=== PATIENT | female | born 1945 | race Caucasian/White ===

== ENCOUNTER 2017-05-13 08:00 | Outpatient (CLI) | payer MEDICARE, BC | END 2017-05-13 08:01 | disposition home or self-care (01) | LOC: BICMAMMO 08:00 | PROVIDERS: ATTEND Specialist | DX: Z13.820 Encounter for screening for osteoporosis (principal); M85.88 Other specified disorders of bone density and structure, other site; M85.859 Other specified disorders of bone density and structure, unspecified thigh | CPT/HCPCS: 77063; 77067; 77080; G0202 ==

== ENCOUNTER 2018-05-16 11:31 | Outpatient (CLI) | payer MEDICARE, BC | END 2018-05-16 11:32 | disposition home or self-care (01) | LOC: BICMAMMO 11:31 | PROVIDERS: ATTEND Specialist | DX: Z12.31 Encounter for screening mammogram for malignant neoplasm of breast (principal) | CPT/HCPCS: 77063; 77067 ==

== ENCOUNTER 2019-05-17 13:35 | Outpatient (CLI) | payer MEDICARE, BC ==
--- NOTE | 2019-05-17 14:52 | MMO ---
Bilateral MAMMO Bilat Screen [facility]. CLINICAL HISTORY: Patient is 74 years old and is seen for screening. The patient has no family history of breast cancer. The patient has no personal history of cancer. VIEWS: The views performed were: bilateral craniocaudal with tomosynthesis and bilateral mediolateral oblique with tomosynthesis. FILMS COMPARED: The present examination has been compared to prior imaging studies performed at [facility] on 05/13/2017 and 05/16/2018, and at [facility] on 12/04/2013 and 05/15/2015. This study has been interpreted with the assistance of computer-aided detection. MAMMOGRAM FINDINGS: There are scattered fibroglandular densities. There are stable benign appearing calcifications seen in both breasts. There are no suspicious masses, suspicious calcifications, or new areas of architectural distortion. IMPRESSION: THERE IS NO MAMMOGRAPHIC EVIDENCE OF MALIGNANCY. A ROUTINE FOLLOW-UP MAMMOGRAM IN 1 YEAR IS RECOMMENDED. THE RESULTS OF THIS EXAM WERE SENT TO THE PATIENT. ACR BI-RADS Category 2 - Benign finding MAMMOGRAPHY NOTE: 1. A negative mammogram report should not delay a biopsy if a dominant of clinically suspicious mass is present. 2. Approximately 10% to 15% of breast cancers are not detected by mammography. 3. Adenosis and dense breasts may obscure an underlying neoplasm. Reported by: SHELIA JOHNSON MD Electonically Signed: [id number]
== END 2019-05-17 13:36 | disposition home or self-care (01) ==
LOC: BICMAMMO 13:35
PROVIDERS: ATTEND Specialist
DX: Z12.31 Encounter for screening mammogram for malignant neoplasm of breast (principal)
CPT/HCPCS: 77063; 77067

== ENCOUNTER 2019-05-26 12:37 | Outpatient (CLI) | payer MEDICARE, BC ==
--- NOTE | 2019-05-26 13:34 | MRI ---
THORACIC SPINE MRI WITHOUT CONTRAST: HISTORY: Back pain that radiates to the left hip and down the left leg. FINDINGS: Appropriate T1 marrow signal intensity of the thoracic vertebrae. Vertebral body height is maintained . No fracture. There does appear to be a hemangioma at the T8 level. No significant STIR hyperintensity to suggest vertebral body edema or ligamentous injury. Visualized mediastinum, lung parenchyma and solid organs are unremarkable. Conus medullaris terminates beyond the T12 level. The thoracic cord has a normal size and signal intensity. No cord malacia or cord expansion. T3-T4: Central disc protrusion that abuts the thecal sac. No significant central canal stenosis. T4-T5: Central disc protrusion that abuts the thecal sac. No significant central canal stenosis. T5-T6: Small left and right paracentral disc bulges. No significant central canal stenosis. T6-T7: Minimal left paracentral disc bulge. No significant central canal stenosis. T7-T8: Minimal disc bulge without significant central canal stenosis. T8-T9: Central, right paracentral and left paracentral disc protrusion. Mass effect and deformity the left hemicord. No cord signal abnormality. Mild to moderate central canal stenosis. T9-T10: Minimal left right paracentral disc bulges. No significant central canal stenosis. T10-T11: No significant central canal stenosis. T11-T12: Demonstrates mild central canal stenosis predominantly due to posterior element hypertrophy. IMPRESSION: Mild to moderate central canal stenosis at T8-T9 due to disc protrusion. Transcribed Date/Time: 05/26/2019 1:55 PM
--- NOTE | 2019-05-26 14:26 | MRI ---
MRI LUMBAR SPINE WITHOUT CONTRAST: INDICATION: Lumbar radiculopathy with back pain radiating into the left hip and down the left leg. COMPARISON: MRI lumbar spine dated 10/26/2013. FINDINGS: Grade I anterolisthesis of L5 on S1 is stable. The conus is seen to terminate at L2. No acute fracture is evident. There is increased edema seen between the L4-5 interspinous space, slightly more pronounced than on t he prior examination, with some subcortical sclerosis involving the inferior aspect of L4 and superio r aspect of L5 spinous processes, suspicious for changes of Baastrup's disease. At L5-S1, there is advanced facet joint degenerative change and a broad-based pseudobulge with facet hypertrophy inducing mild central canal narrowing and mild lateral recess narrowing, left greater scar n right. This is stable to the prior exam. The loss of disk space height in addition to the anterol isthesis and a broad-based pseudobulge induce stable moderate to severe left and mild right neural fo raminal narrowing. At L4-5, there is a broad-based bulge with facet hypertrophy inducing moderate central canal narrowin g. This has progressed from the prior examination due to the broad-based bulge and facet hypertrophy . The loss of disk space height in addition to degenerative change at this level induces mild bilate ral neural foraminal narrowing which has progressed from the prior exam. At L3-4, there is a broad-based bulge with facet hypertrophy inducing mild central canal narrowing an d mild bilateral neural foraminal narrowing. This has mildly progressed from the prior exam. At L2-3, there is a broad-based bulge, but no appreciable central canal or neural foraminal narrowing . At L1-L2, there is no appreciable central canal or neural foraminal narrowing. At T12-L1, there is no appreciable central canal or neural foraminal narrowing. Incidental note is made of mild bilateral hydronephrosis. IMPRESSION: 1. Worsening central canal narrowing and neural foraminal narrowing at L3-4 and L4-5. 2. Stable moderate to severe left and mild right neural foraminal narrowing at L5-S1. 3. 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 4. Nonspecific mild bilateral hydronephrosis. Further evaluation with a CT of the abdomen and pelvi s without contrast is recommended for additional characterization. POS: [facility]
== END 2019-05-26 12:38 | disposition home or self-care (01) ==
LOC: TBSIIMAG 12:37
PROVIDERS: ATTEND Neurological Surgery
DX: M54.16 Radiculopathy, lumbar region (principal); M48.061 Spinal stenosis, lumbar region without neurogenic claudication; M48.07 Spinal stenosis, lumbosacral region; M48.26 Kissing spine, lumbar region; N13.30 Unspecified hydronephrosis; M48.04 Spinal stenosis, thoracic region; M51.24 Other intervertebral disc displacement, thoracic region
CPT/HCPCS: 72146; 72148

== ENCOUNTER 2020-10-02 14:23 | Outpatient (CLI) | payer MEDICARE, BC | END 2020-10-02 14:24 | disposition home or self-care (01) | LOC: BICMRI 14:23 | PROVIDERS: ATTEND Specialist | DX: M48.061 Spinal stenosis, lumbar region without neurogenic claudication (principal); M47.816 Spondylosis without myelopathy or radiculopathy, lumbar region | CPT/HCPCS: 72148 ==

== ENCOUNTER 2021-01-03 10:50 | Outpatient (CLI) | payer MEDICARE, BC ==
[2021-01-03 18:31] LABS: SARS-CoV-2 PCR by NAA Not Detected (NotDetected)
== END 2021-01-03 10:51 | disposition home or self-care (01) ==
LOC: LABBT 10:50
PROVIDERS: ATTEND Neurological Surgery
DX: Z01.812 Encounter for preprocedural laboratory examination (principal); M54.16 Radiculopathy, lumbar region; Z20.822 Contact with and (suspected) exposure to COVID-19
CPT/HCPCS: U0003; U0005

== ENCOUNTER 2021-01-08 06:21 | Inpatient (IN) | payer MEDICARE, BC ==
[2021-01-08] MEDS ORDERED: Bupivacaine PF 0.5% 30 ML VIAL ONE (06:41)
[2021-01-08] MEDS ORDERED: Thrombin 5000 UNITS/5 ML VIAL ONE (06:41)
[2021-01-08] MEDS ORDERED: EPINEPHrine 1 MG/ML AMP ONE (06:41)
[2021-01-08] MEDS ORDERED: Labetalol HCl 100 MG/20 ML VIAL ONE (07:18)
[2021-01-08] MEDS ORDERED: Clindamycin/D5W 900 mg/50 ml Premix Bag ONE ×2 (07:38→16:46)
[2021-01-08] MEDS ORDERED: Levofloxacin 500 mg/D5W 100 ml Premix Bag ONE (07:38)
[2021-01-08] MEDS ORDERED: Fentanyl 100 MCG/2 ML VIAL ONE ×2 (07:45→10:56)
[2021-01-08] MEDS ORDERED: Midazolam HCl 2 mg/2 ml Vial ONE ×2 (07:45→08:00)
[2021-01-08] MEDS ORDERED: PROPOFOL 200 MG/20 ML VIAL ONE (08:46)
[2021-01-08] MEDS ORDERED: Ondansetron PF 4 MG/2 ML Vial ONE ×2 (08:46→12:32)
[2021-01-08] MEDS ORDERED: Ketorolac Tromethamine 30 MG/ML VIAL ONE (08:46)
[2021-01-08] MEDS ORDERED: Rocuronium Bromide 10 MG/ML (10ML VIAL) ONE (08:46)
[2021-01-08] MEDS ORDERED: Metoprolol Tartrate 5 MG/5 ML VIAL ONE (08:46)
[2021-01-08] MEDS ORDERED: Lidocaine 1% PF 5 ML VIAL ONE (08:46)
[2021-01-08] MEDS ORDERED: Dexamethasone 20 MG/5 ML VIAL ONE (08:46)
[2021-01-08] MEDS ORDERED: SUGAMMADEX SODIUM 200 MG/2 ML VIAL ONE (09:34)
[2021-01-08] MEDS ORDERED: Morphine 2 MG/ML VIAL ONE (10:42)
[2021-01-08] MEDS ORDERED: hydrALAZINE 20 MG/ML VIAL ONE (15:29)
[2021-01-08] MEDS ORDERED: Ondansetron PF 4 MG/2 ML Vial SLOW IVP PRN (19:32)
[2021-01-08] MEDS ORDERED: tiZANidine HCl 4 MG TAB PO PRN (19:32)
[2021-01-08] MEDS ORDERED: Bisacodyl 10 MG SUPP PR PRN (19:45)
[2021-01-08] MEDS ORDERED: Acetaminophen 650 MG Suppository PR PRN (19:45)
[2021-01-08] MEDS ORDERED: Acetaminophen 325 MG TAB PO PRN (19:45)
[2021-01-08] MEDS ORDERED: Morphine 4 MG/ML VIAL SLOW IVP PRN (19:45)
[2021-01-08] MEDS ORDERED: diphenhydrAMINE 50 MG/ML VIAL IVP PRN (19:45)
[2021-01-08] MEDS ORDERED: diphenhydrAMINE 25 MG CAP PO PRN (19:45)
[2021-01-08] MEDS ORDERED: Morphine 2 MG/ML VIAL SLOW IVP PRN (19:45)
[2021-01-08] MEDS ORDERED: Mag-Al 1200 mg/1200 mg/30 ML UDCUP PO PRN (19:45)
[2021-01-08] MEDS ORDERED: Acetaminophen/Codeine 30-300mg Tablet PO PRN ×2 (19:45)
[2021-01-08] MEDS: Sodium Chloride 0.9% 1,000 ML IV SCH (21:35)
[2021-01-08 21:44] VITALS: BMI 27.1
[2021-01-09] MEDS ORDERED: Non-Formulary Item 1 EACH (Levothyroxine Sodium [Levothyroxine] 50 MCG Capsule) PO SCH (09:00)
[2021-01-09] MEDS ORDERED: Non-Formulary Item 1 EACH (Sitagliptin Phosphate [Januvia] 50 MG Tab) PO SCH (09:00)
[2021-01-09] MEDS: Sodium Chloride 0.9% 1,000 ML IV SCH (09:52)
[2021-01-09 13:02] VITALS: BP 149/62; TEMP 97.8
[2021-01-09] MEDS ORDERED: Rosuvastatin 20 MG TAB PO SCH (21:00)
[2021-01-09] MEDS ORDERED: Alogliptin 6.25 MG TAB PO SCH (21:00)
[2021-01-09] MEDS ORDERED: Terazosin HCl 1 MG CAP PO SCH (21:00)
[2021-01-09] MEDS ORDERED: ALOGLIPTIN BENZOATE 12.5 MG PO SCH (21:00)
[2021-01-10] MEDS ORDERED: Levothyroxine Sodium 50 MCG TAB PO SCH (06:00)
== END 2021-01-09 15:21 | disposition home or self-care (01) | DRG 517 ==
LOC: SDC 06:21 → SURG B 15:37
PROVIDERS: ADMIT Neurological Surgery; ATTEND Neurological Surgery
PROC: 01NB0ZZ Release Lumbar Nerve, Open Approach (ICD-10-PCS; principal; 2021-01-08)
DX: M48.062 Spinal stenosis, lumbar region with neurogenic claudication (principal); M54.16 Radiculopathy, lumbar region; E11.9 Type 2 diabetes mellitus without complications; E78.00 Pure hypercholesterolemia, unspecified; G89.4 Chronic pain syndrome; M19.90 Unspecified osteoarthritis, unspecified site; E03.9 Hypothyroidism, unspecified; I10 Essential (primary) hypertension; Z90.49 Acquired absence of other specified parts of digestive tract; Z90.710 Acquired absence of both cervix and uterus; Z79.899 Other long term (current) drug therapy; Z79.890 Hormone replacement therapy; Z79.84 Long term (current) use of oral hypoglycemic drugs; Z88.0 Allergy status to penicillin; Z28.21 Immunization not carried out because of patient refusal
CPT/HCPCS: 76000; J0171; J0360; J1100; J1885; J1956; J2250; J2270; J2405; J2704; J3010; J3490; S0020